=== PATIENT | male | born 1980 | race Caucasian/White ===

== ENCOUNTER → 2016-07-17 | Day surgery (SDC) | payer OTHER | END | disposition home or self-care (01) | LOC: FAS 10:20 | DX: K29.70 Gastritis, unspecified, without bleeding (principal); K44.9 Diaphragmatic hernia without obstruction or gangrene; K21.0 Gastro-esophageal reflux disease with esophagitis; G47.30 Sleep apnea, unspecified; Z88.0 Allergy status to penicillin; Z87.891 Personal history of nicotine dependence; Z87.442 Personal history of urinary calculi; Z82.49 Family history of ischemic heart disease and other diseases of the circulatory system; Z83.3 Family history of diabetes mellitus; Z80.8 Family history of malignant neoplasm of other organs or systems | CPT/HCPCS: 88305; 88312; J2704 ==